=== PATIENT | female | born 1930 | race African-American/Black ===

== ENCOUNTER 2016-06-28 16:31 | Emergency (ER) | payer OTHER ==
[~2016-06-28] VITALS: Ht 162.6 cm; Wt 65.8 kg
[~2016-06-28 16:31] MED LIST: ALDACTONE25 MG ORAL; FUROSEMIDE20 M1 ORAL; FUROSEMIDE40 MG ORAL; HYDRALAZINE HCL10 MG ORAL; HYDRALAZINE HCL25 M1 ORAL; JANUVIA50 MG ORAL; LISINOPRIL10 MG ORAL; NITROGLYCERIN1 EAC2 TD; PRADAXA75 MG ORAL; [UNRECOGNIZED DRUG - OTHER]
--- NOTE | 2016-06-28 17:04 | Emergency Room Report ---
History of Present Illness General Chief Complaint: Dyspnea/Respdistress Source: Patient, EMS Present Illness HPI Patient was brought by paramedics for complaints of shortness of breath Patient herself is in extreme status Cannot provide full sentences Patient denies chest pain However the patient appears extremely short of breath And cannot answer questions fully This does limit the history present illness significantly We're still pending family to present for further input I have a presentation from last year with ejection fraction of 25% And poor cardiac output patient also had previous anemia Unknown specific duration of time regarding this presentation Patient cannot provide any input regarding CODE STATUS Allergies: Coded Allergies: PENICILLINS (Verified Allergy, Unknown, 06/28/16) Patient History Limited by: medical condition Past Medical History: see triage record Pertinent Family History: none Reviewed Nursing Documentation: PMH: Agreed, PSxH: Agreed Nursing Documentation-PMH Hx Cardiac Problems: Yes - CHF Hx Hypertension: Yes Hx Diabetes: Yes Hx Cancer: No Hx Gastrointestinal Problems: No Hx Cerebrovascular Accident: Yes - 2001 and 2013 Hx Transient Ischemic Attacks: Yes Hx Weakness: Yes Hx Fatigue: Yes Review of Systems All Other Systems: negative except mentioned in HPI Physical Exam Vital Signs Date Time Temp Pulse Resp B/P Pulse Ox O2 Delivery O2 Flow Rate FiO2 06/28/16 16:30 120 28 223/136 98 Non-Rebreather 15.0 Sp02 EP Interpretation: reviewed, normal General Appearance: severe distress - Respiratory distress pending failure hypotensive Head: normocephalic, atraumatic Eyes: bilateral eye PERRL ENT: no angioedema, other - Appears pale Neck: supple, thyroid normal, no meningismus Respiratory: accessory muscle use, crackles - diffusely Cardiovascular #1: no gallop, tachycardia, other - Weak pulses Gastrointestinal: soft, no mass, no organomegaly Musculoskeletal: other - Difficult evaluation no obvious distress, patient appears weak diffusely , Neurologic: other - Patient has decreased mentation, slow to respond Skin: other - pale Lymphatic: no adenopathy Procedures Critical Care Time Critical Care Time 40 minutes for initial critical presentation Findings concerning for life threatening pathology Not including any procedural time Medical Decision Making Diagnostic Impression: Primary Impression: STEMI (ST elevation myocardial infarction) ER Course Patient presents and extremous status Appears to be in respiratory distress Initial EKG is concerning for ST elevation ME, or also concerning T-wave changes Patient initiated on cardiac workup emergently Calcium chloride Dextrose Insulin were provided for preemptive treatment of hyperkalemia Patient was placed on BiPAP Chest x-ray does not show any obvious acute CHF Therefore further IV hydration was provided Patient's EKG does show changes after acute intervention Nevertheless given the patient's initial EKG with possible STEMI Patient requiring high level of care Blood work revealing significant abnormalities including hyperkalemia with renal failure findings severe acidosis Chemistry potassium 6.2 Chloride 96 CO2 9 BUN creatinine 56/3.5 respectively Lactic acid 9 BNP 18,000 INR 3.8 ABG pH 7.1 CBC normal EKG Diagnostic Results Rate: normal Rhythm: other ST Segments: other - ST segment elevations 2-3 mm inferior lateral area, there is also consideration for significant T wave changes Rhythm Strip Diag. Results EP Interpretation: yes Rate: 88 Rhythm: NSR, no PVC's, other - Prolonged QRS T wave abnormality Chest X-Ray Diagnostic Results EP Interpretation: Yes Findings: no consolidation, no pneumothorax, other - Left basilar effusion, cardiomegaly Number of Views: 1 Last Vital Signs Date Time Temp Pulse Resp B/P Pulse Ox O2 Delivery O2 Flow Rate FiO2 06/28/16 16:30 120 28 223/136 98 Non-Rebreather 15.0 Status: improved Disposition: XFER SHT-TRM HOSP Condition: Critical Referrals: [facility],REFERRING (PCP) MAGDALENO CALDERON D.O. Jun 28, 2016 17:04
[2016-06-28 17:31] LABS: BASOPHILS % (AUTO) 0.8 % (0.0-2.0); LYMPHOCYTES % (AUTO) 13.1 % (20.0-45.0); MEAN CORPUSCULAR HEMOGLOBIN 31.6 PG (27.0-31.0); MEAN CORPUSCULAR VOLUME 99 FL (80-99); MEAN PLATELET VOLUME 7.6 FL (6.5-10.1); MONOCYTES % (AUTO) 9.3 % (1.0-10.0); NEUTROPHILS % (AUTO) 76.8 % (45.0-75.0); PLATELET COUNT 148 K/UL (150-450); RED CELL DISTRIBUTION WIDTH 15.9 % (11.6-14.8); WHITE BLOOD COUNT 12.1 K/UL (4.8-10.8)
[2016-06-28 17:41] LABS: TROPONIN I < 0.30 ng/mL (<=0.30)
[2016-06-28 17:46] LABS: ABG ALLEN TEST POSITIVE; ABG BASE EXCESS -19.9; ABG PCO2 27.2 mmHg (35.0-45.0)
[2016-06-28 17:52] LABS: INR 3.8 (0.9-1.1); PROTHROMBIN TIME 40.1 SEC (9.30-11.50)
[2016-06-28 17:54] LABS: REFLEX LACTIC ACID YES OR NO YES
[2016-06-28] MEDS ORDERED: Calcium Chloride 10% 10ml carpuject IVP ONE (18:00)
[2016-06-28] MEDS ORDERED: Calcium Chloride 100mg/ml Vial IVP ONE (18:00)
[2016-06-28] MEDS ORDERED: Sodium Bicarbonate 8.4% 50ml Carp IV ONE (18:00)
[2016-06-28 18:01] VITALS: BP 116/97
[2016-06-28 18:04] LABS: ALANINE AMINOTRANSFERASE 60 U/L (3-33); ASPARTATE AMINO TRANSFERASE 117 U/L (5-40); CALCIUM 9.2 mg/dL (8.6-10.2); CHLORIDE 96 mEQ/L (98-107); CREATININE 3.5 mg/dL (0.5-0.9); HEMOLYSIS 29; LIPASE 50 U/L (< 60); SODIUM 138 mEQ/L (135-145); TOTAL PROTEIN 7.5 g/dL (6.6-8.7)
[2016-06-28 18:13] LABS: CKMB 4.2 ng/mL (< 3.8)
[2016-06-28 18:19] LABS: ANION GAP 33 (5-15)
[2016-06-28 18:22] LABS: CARBON DIOXIDE 9 mEQ/L (20-30); POTASSIUM 6.2 mEQ/L (3.4-4.9)
[2016-06-28 18:46] LABS: BILIRUBIN,DIRECT 0.7 mg/dL (0.1-0.3)
--- NOTE | 2016-06-29 11:22 | Diagnostic Imaging Report ---
Indication: SOB Technique: One view of the chest Comparison: 04/30/2015 Findings: There is consolidation at the left lung base. There is probably a small amount of pleural fluid at the left lung base. Previously demonstrated interstitial congestive changes has cleared. There is some central bronchial wall thickening. The heart is enlarged. There is evidence of prior median sternotomy Impression: Left basilar consolidation and likely pleural fluid Cardiomegaly
== END 2016-06-28 18:05 | disposition short-term general hospital (02) ==
LOC: EDBD 16:31 → EMR 16:57
DX: I21.3 ST elevation (STEMI) myocardial infarction of unspecified site (principal); E11.9 Type 2 diabetes mellitus without complications; I10 Essential (primary) hypertension; I50.9 Heart failure, unspecified; Z86.73 Personal history of transient ischemic attack (TIA), and cerebral infarction without residual deficits; Z88.0 Allergy status to penicillin
CPT/HCPCS: 36415; 36600; 71010; 80053; 82248; 82550; 82553; 82803; 82962; 83605; 83690; 83880; 84484; 85025; 85610; 85730; 86850; 86900; 86901; 87040; 93005; 94660; 94664; 96360; 96374; 96375; 99291; J3490